=== PATIENT | male | born 1995 | race Caucasian/White ===

== ENCOUNTER 2016-09-01 19:04 | Emergency (ER) | payer BC | END 2016-09-01 20:14 | disposition left against medical advice (07) | LOC: ER1 19:04 | DX: Z53.21 Procedure and treatment not carried out due to patient leaving prior to being seen by health care provider (principal) ==

== ENCOUNTER 2020-10-19 15:30 | Emergency (ER) | payer OTHER ==
[~2020-10-19 15:30] MED LIST: ANTIVERT 25MG T25 MG PO; AUGMENTIN 875-1 EACH PO; IBUPROFEN600 MG PO; Magic Mouth Wash PO
[2020-10-19 17:08] LABS: HEMOGLOBIN 15.8 gm/dl (14.0-17.5); RED BLOOD COUNT 5.39 M/UL (4.20-5.50); WHITE BLOOD COUNT 7.8 K/UL (4.5-11.0)
[2020-10-19 17:44] LABS: BUN/CREATININE RATIO 13 (0-10)
== END 2020-10-19 20:05 | disposition home or self-care (01) ==
LOC: ER1 15:30
PROVIDERS: Physician Assistant
DX: R10.9 Unspecified abdominal pain (principal); R30.0 Dysuria; R31.9 Hematuria, unspecified
CPT/HCPCS: 80053; 81001; 83690; 85025; 99284

== ENCOUNTER 2020-11-11 03:05 | Emergency (ER) | payer SELFPAY ==
[2020-11-11 04:44] LABS: RED BLOOD COUNT 5.37 M/UL (4.20-5.50); WHITE BLOOD COUNT 8.6 K/UL (4.5-11.0)
[2020-11-11 05:00] LABS: BUN/CREATININE RATIO 12 (0-10)
[2020-11-11] MEDS ORDERED: AUGMENTIN 875-1 EACH PO (06:08)
[2020-11-11] MEDS ORDERED: BENTYL 20MG TAB20 MG PO (06:08)
[2020-11-11] MEDS ORDERED: ZOFRAN ODT 4 MG4 MG SL (06:08)
== END 2020-11-11 07:10 | disposition home or self-care (01) ==
LOC: ER1 03:05
PROVIDERS: Emergency Medicine
DX: K52.9 Noninfective gastroenteritis and colitis, unspecified (principal)
CPT/HCPCS: 80053; 81001; 83690; 85025; 85652; 86140; 96374; 96375; 99284; J0500; J2405; J7030; Q9967